=== PATIENT | male | born 1945 | race Caucasian/White ===

== ENCOUNTER → 2017-09-24 | Outpatient (CLI) | payer OTHER ==
[~2017-09-24] MED LIST: ASPIR 8181 MG; ASPIRIN325 PO; ATORVASTATIN CA40 MG PO; BYSTOLIC 5 MG5 M1; COLACE100 MG PO; COUMADIN 5 MG TA5 M1 PO; ENOXAPARIN150 MG/1 M SUBQ; FEVERALL650 MG RECTAL; HYDROCODON-ACE1 EAC7 PO; HYDROCODONE-AP1 EAC6; LIVALO2 MG; MAGNESIUM; METAMUCIL PAC1 UDPKT PO; METFORMIN HCL500 MG; NAPROSYN500 MG PO; OXYCODONE HCL 55 MG PO; PROTONIX 20 MG20 M1 PO; PROTONIX40 M2 PO; TYLENOL325 MG PO; XARELTO10 MG PO
== END ==
LOC: M.CT 08:55
DX: Z13.6 Encounter for screening for cardiovascular disorders (principal)

== ENCOUNTER → 2017-10-13 | Outpatient (CLI) | payer MEDICARE ==
[2017-10-13] VITALS (7 sets, daily range): BP systolic 113–152; BP diastolic 59–75
[~2017-10-13] VITALS: Ht 180.3 cm; Wt 108.9 kg
[2017-10-13 08:32] LABS: CALCIUM 8.8 mg/dL (8.5-10.1); CREATININE 1.2 mg/dL (0.6-1.3); POTASSIUM 4.3 mmol/L (3.5-5.1)
--- NOTE | 2017-10-13 10:29 | EKG ---
[place] [address] ELECTROCARDIOGRAM REPORT Name: EMMANUEL QUINTEROS Room: [facility]#: [id number] Admission: 10/13/17 Attend Phys: Shine Bauer MD, F Discharge: Date of : 49 Report #: [id number] THIS REPORT FOR: //name// [facility] Test Date: 2017-10-13 Test Time: 08:14:15 Pat Name: EMMANUEL QUINTEROS Department: Room: Gender: M Sprigger: [facility] : 1945 Requested By: Shine Bauer Order Number: [id number] Reading MD: Shine Bauer Measurements Intervals [place] Rate: 58 P: 14 CT: 191 QRS: -4 QRSD: 75 T: 4 QT: 420 QTc: 413 Interpretive Statements Sinus rhythm Compared to ECG 02/22/2016 07:54:57 Sinus tachycardia no longer present Electronically Signed On 10-13-2017 10:29:32 MOLD RUNNER by Shine Bauer [email or web address] <ELECTRONICALLY SIGNED> By: Shine Bauer MD, [facility] 10/13/17 1029 0814 3 Shine Bauer MD, FACC /EPI
--- NOTE | 2017-10-13 13:56 | CARD ---
[address] [address] CARDIAC CATH REPORT Name: EMMANUEL QUINTEROS [id number] Admission: 10/13/17 Attend Phys: Shine Bauer MD, F Discharge: Date of : 49 Report #: [id number] THIS REPORT FOR: //name// APPROVED REPORT Patient Details Patient Status: Out-Patient Room #: The patient is a 72 year-old male Event Personnel Shine Bauer Literacy Coordinator, Aura Roman RN RN, Beatriz Jackson RTR Paoloub, Roldan Nicole Monitor Procedures Performed cath Indication Dyspnea Risk Factors Hypercholesterolemia, Coronary Artery Disease Admission/Lab Medications/Medications given during procedure Heparin Unfract. Procedure Narrative The patient was brought electively to the Cardiac Catheterization Laboratory and was prepped and draped in a sterile manner. The right wrist was infiltrated with 1% Lidocaine subcutaneous anesthesia. A 6 fr sheath was inserted into the right radial artery. Coronary angiography was performed using coronary diagnostic catheters. The right coronary system was accessed and visualized with a Diagnostic - JR4 catheter. The left coronary system was accessed and visualized with a Diagnostic - JL4 catheter. The left ventricle was accessed and visualized with a Diagnostic - PIGTAIL catheter. Left ventricular/Aortic Valve gradient assessed via catheter pullback. Left ventriculogram was performed in PEARSON projection. Closure device was deployed with a 6 Fr vascband. The patient tolerated the procedure well and there were no complications associated with the procedure. There was no hematoma. Intraoperative Conscious Sedation Sedation start time: 928 Case end Time: 949 Fentanyl 25.0 mcg Versed [address] [address] CARDIAC CATH REPORT Name: EMMANUEL QUINTEROS Room: [facility]#: [id number] Admission: 10/13/17 Attend Phys: Shine Bauer MD, F Discharge: Date of : 49 Report #: [id number] Fluoro Time: 3.2 minutes Dose: DAP 69896 cGycm2 1094 mGy Contrast Type and Amount: Visipaque 120 ml Coronary Angiography The patient's coronary anatomy is left dominant. [place] Artery Percent Stenosis Left Main: 0 % Prox LAD: 0 % Mid/Distal LAD: 0 % Circumflex: 0 % RCA: 0 % Ramus: %lad was heavily calcified with slow antedgrad flow Left Ventriculography The left ventricle is normal in size with normal contractility. The left ventricular ejection fraction is estimated to be 50-55%. Left ventricular wall motion abnormalities are not present. There is no mitral insufficiency. Hemodynamics The aortic pressure is 85/60 mmHg with a mean of 72 mmHg. The left ventricular pressure is 88/2 mmHg with a mean of mmHg. The left ventricular end diastolic pressure is 10 mmHg. There was no gradient across the aortic valve upon pullback. Pullback from the left ventricle to the aorta revealed no gradient across the aortic valve. Conclusion 1. no obstructive cad noted Recommendations Aggressive Medical Therapy <ELECTRONICALLY SIGNED> By: Shine Bauer MD, [facility] 10/13/17 1356 1356 [id number] Bauer MD, [facility] /INF
== END ==
LOC: M.CL 07:01
PROVIDERS: Internal Medicine Cardiovascular Disease
DX: I25.10 Atherosclerotic heart disease of native coronary artery without angina pectoris (principal); E78.00 Pure hypercholesterolemia, unspecified; K21.9 Gastro-esophageal reflux disease without esophagitis

== ENCOUNTER → 2018-09-29 | Outpatient (CLI) | payer MEDICARE, OTHER | LOC: M.MRI 09-23 13:12 | DX: S46.912A Strain of unspecified muscle, fascia and tendon at shoulder and upper arm level, left arm, initial encounter (principal); M75.102 Unspecified rotator cuff tear or rupture of left shoulder, not specified as traumatic; M25.512 Pain in left shoulder; M25.511 Pain in right shoulder; X58.XXXA Exposure to other specified factors, initial encounter; Y93.89 Activity, other specified; Y92.89 Other specified places as the place of occurrence of the external cause; Y99.8 Other external cause status ==

== ENCOUNTER 2019-09-13 08:08 | Inpatient (IN) | payer MEDICARE, OTHER ==
[2019-09-02 08:52] LABS: ABSOLUTE LYMPHOCYTES 2.4 thou/uL (0.8-5.3); ABSOLUTE MONOCYTES 0.7 thou/uL (0.0-1.2); ABSOLUTE NEUTROPHILS 5.1 thou/uL (1.6-8.1); BASOPHILS 0.6 %; EOSINOPHILS 0.1 %; HEMATOCRIT 49.9 % (42.0-52.0); HEMOGLOBIN 16.9 gm/dL (14.0-18.0); LYMPHOCYTES 29.2 %; MCH 31.8 pg (26.0-34.0); MCHC 33.9 g/dL (28.0-37.0); MCV 93.6 fL (80.0-100.0); MPV 8.1 fl. (7.2-11.1); NUCLEATED RBCS 0 /100WBC; PLATELET COUNT* 268 thou/uL (150-400); POLYS 61.1 %; RBC 5.34 mil/uL (4.50-6.00); RDW-CV 13.2 % (10.5-14.5); WBC 8.4 thou/uL (4.0-11.0)
[2019-09-02 09:03] LABS: APTT 23.2 Seconds (25.0-31.3); PROTIME 10.4 Seconds (9.20-11.50)
[2019-09-02 09:16] LABS: ALBUMIN 3.7 g/dL (3.4-5.0); CALCIUM 8.9 mg/dL (8.5-10.1); CREATININE 1.3 mg/dL (0.6-1.3); POTASSIUM 4.1 mmol/L (3.5-5.1); TOTAL BILIRUBIN 0.5 mg/dL (<0.1-1.0); TOTAL PROTEIN 7.5 g/dL (6.4-8.2)
[2019-09-02 10:17] LABS: ESR (SEDRATE) 3 mm/hr (0-20)
--- NOTE | 2019-09-02 10:30 | EKG ---
[place] [address] ELECTROCARDIOGRAM REPORT Name: EMMANUEL QUINTEROS Room: [facility]#: [id number] Admission: Attend Phys: Casey Norris DO Discharge: Date of : 49 Report #: [id number] THIS REPORT FOR: //name// [facility] Test Date: 2019-09-02 Test Time: 09:03:45 Pat Name: EMMANUEL QUINTEROS Department: Room: Gender: M Bog Cutter: : 1945 Requested By: Casey Norris Order Number: [id number] Reading MD: Shine Bauer Measurements Intervals [place] Rate: 66 P: 13 DE: 160 QRS: 19 QRSD: 89 T: 21 QT: 377 QTc: 395 Interpretive Statements Sinus rhythm Abnormal R-wave progression, early transition Baseline wander in lead(s) III,aVF Compared to ECG 10/13/2017 08:14:15 No significant changes Electronically Signed On 09-02-2019 10:30:10 LOAD OUT SUPERVISOR by Shine Bauer [email or web address] <ELECTRONICALLY SIGNED> By: Shine Bauer MD, [facility] 09/02/19 1030 D: 01902 2 Shine Bauer MD, FACC /EPI
[2019-09-03 02:10] LABS: GLYCOHEMOGLOBIN (HGB A1C) 6.4 % (4.8-5.6)
[~2019-09-13] VITALS: Ht 177.8 cm; Wt 105.7 kg
[~2019-09-13 08:08] MED LIST changes: +ACIPHEX 20 MG T20 MG PO; +MEDROLDOSEPACK PO
[2019-09-13 10:55] VITALS: BP 122/79
[2019-09-13 16:17] VITALS: BP 123/65
[2019-09-13 20:50] VITALS: BP 124/74
[2019-09-14] VITALS: BP 107/70
[2019-09-14 03:54] VITALS: BP 103/66
[2019-09-14 05:45] LABS: HEMATOCRIT 41.8 % (42.0-52.0); HEMOGLOBIN 13.9 gm/dL (14.0-18.0)
--- NOTE | 2019-09-14 07:17 | OP ---
[address] [address] OPERATIVE REPORT Name: EMMANUEL QUINTEROS Room: [address] .R.#: [id number] Admission: 09/13/19 Attend Phys: Dylan Iyer Discharge: Date of : 49 Report #: [id number] THIS REPORT FOR: //name// cc: Brittaney Dhillon Linda J. DO ~ THIS REPORT FOR: //name// CC: Brittaney Marley DICTATED BY: Cisco Tony DO DATE OF SERVICE: 09/13/2019 PREOPERATIVE DIAGNOSIS: Left knee degenerative joint disease. POSTOPERATIVE DIAGNOSIS: Left knee degenerative joint disease. OPERATION PERFORMED: Left total knee arthroplasty. IMPLANTS: Biomet Vanguard total knee system using the following components: A. Size 70-mm femur. B. A 79-mm fixed cruciate tibial plate with a locking bar. C. A 12-mm anterior stabilized polyethylene liner. D. A 34-mm asymmetric patella. E. Two bags of Pal[place]os bone cement. SURGEON: Casey Norris DO ASSISTANTS: CHEPE Capps, Cisco Tony DO and Nick Mena DO ANESTHESIA: General with regional adductor canal nerve block. ESTIMATED BLOOD LOSS: 100 mL. DRAINS: None. SPECIMENS: None. COMPLICATIONS: None apparent. CONDITION OF THE PATIENT: Stable. DISPOSITION: PACU and then to Med/Surg floor. ANTIBIOTICS: 2 g Ancef IV prior to procedure. [facility] [address] [place] [address] OPERATIVE REPORT Name: QUINTEROSEMMANUEL Paula Room: [address] [facility]#: [id number] Admission: 09/13/19 Attend Phys: Dylan Iyer Discharge: Date of : 49 Report #: [id number] TOURNIQUET TIME: 58 minutes at 295 mmHg. INDICATIONS FOR PROCEDURE: The patient is a pleasant 73-year-old male who has a history of bilateral knee degenerative joint disease. Four years ago, he underwent a right total knee arthroplasty with good results. He has been followed in the clinic for his left knee DJD and was undergoing conservative care. Conservative care no longer providing relief. This consisted of anti-inflammatories, activity modifications, attempts at weight loss, and intraarticular steroid injections. He was informed about the risks, benefits, complications, and indications for left total knee arthroplasty including potential complications including but not limited to neurovascular injury, infection, need for revision surgery, intraoperative fracture or periprosthetic fracture after surgery. I have also discussed DVT, PE, complications of anesthesia and other imponderables. He demonstrated good understanding and consent was obtained prior to surgery. OPERATIVE FINDINGS: Upon arthrotomy of the knee, there was noted to be degenerative changes tricompartmentally with softening of the cartilage and focal cartilage loss in some areas. Bone was eburnated as well. DESCRIPTION OF PROCEDURE: The patient was met in the preoperative suite and the left knee was marked. He was then transferred to the operating room and placed supine on a well-padded table. He was given the benefit of general anesthesia and had a regional nerve block prior to procedure. A tourniquet was applied to the left upper thigh. Next, the left lower extremity was sterilely prepped and draped in the standard fashion. At this point, a surgical timeout was performed indicating correct patient, procedure to be performed as well as operative site and administration of antibiotics. All in the room were in agreement and we elected to proceed. The leg was exsanguinated using gravity and then tourniquet was insufflated. The midline incision was made. Sharp dissection was taken down to the level of the capsule. With a new knife, the capsulotomy was performed, the standard medial parapatellar approach. The patella was everted and the knee was brought into flexion. At this point, Hoffa's fat pad and the anterior and lateral menisci were excised. I also excised the ACL and PCL. Next, the intramedullary drill was inserted into distal femur and then this was followed by the distal femur intramedullary guide. A standard resection of a 5-degree valgus cut with 11 mm resection was performed. At this point, the entire attention was turned to the proximal tibia and the extramedullary guide was placed. This was cut 10 mm from the high lateral side. The knee was brought into extension and the 10 mm spacer block was inserted in perpendicular medial and lateral stress. Next, the knee was brought into flexion again and the AP sizer for the distal femur was used. The proper 4-in-1 block was then placed with 3 degrees of external rotation and the anterior and posterior distal femoral cuts as well as the chamfer cuts were performed. At this point, the trial tibia was positioned and it was found to be a size 79. A size 70 [place] [address] OPERATIVE REPORT Name: EMMANUEL QUINTEROS Room: [address] [place] [facility]#: [id number] Admission: 09/13/19 Attend Phys: Dylan Iyer Discharge: Date of : 49 Report #: [id number] trial was positioned. A 10 mm trial spacer was inserted and this was brought into extension showing complete extension of the knee with some mild varus and valgus laxity. At this point, attention was turned to the patella and this was reamed in standard fashion and a trial patellar button was inserted after the 3 peg holes were drilled and it tracked well with range of motion. The patella and distal femur implants were removed and then the proximal tibia was prepped with the reamer and cruciform punch. All implants were removed and the knee was thoroughly irrigated with saline. We then dried the bone ends and proceeded to cement the implants in the standard fashion using first the tibia, followed by the femur and lastly the patella. With the implants cemented in, a 12 mm trial spacer was inserted and the knee was brought into extension with compression allowing the cement to harden. With the cement hardened, the posterior capsule was injected with a cocktail. The tibial tray was irrigated and all cementophytes were removed. The final 12 mm polyethylene spacer was then inserted followed by the locking bar, was clipped into place. A 12 mm poly provided excellent stability to both varus and valgus stress as well as good anterior and posterior drawer at 90 degrees flexion. The wound was once again irrigated and then vancomycin powder was placed in the knee as well as topical tranexamic acid. At this point, the capsule was closed using #1 Vicryl in a [id number] fashion followed by a running #1 Stratafix barbed suture. The subcutaneous tissue was then closed with 2-0 Monocryl in an inverted simple fashion followed by running subcuticular 3-0 Stratafix. Dermabond was then placed. There was good hemostasis after the tourniquet was let down prior to closure and throughout the procedure. Final tourniquet time was 58 minutes. Needle and sponge counts were correct x 2 at the end of the procedure. The patient was awakened from anesthesia and taken to PACU in a stable condition. POSTOPERATIVE COURSE: Anticipate at least 1 midnight stay for antibiotics 2 doses after surgery as well as working with physical therapy for gait training. We will also initiate both chemical and mechanical DVT prophylaxis. ATTESTATION: I attest that Dr. Casey Norris was present throughout all critical aspects of the case. <ELECTRONICALLY SIGNED> By: Zackery Sandy DO 09/14/19 0717 1514 [id number] Adolph Norris DO /nt
[2019-09-14 08:30] VITALS: BP 106/66
[2019-09-14] MEDS ORDERED: PAIN RELIEVER500 MG PO (09:42)
[2019-09-14] MEDS ORDERED: OXYCODONE HCL 55 MG PO (09:42)
[2019-09-14] MEDS ORDERED: COLACE 100 MG100 MG PO (09:42)
[2019-09-14] MEDS ORDERED: ELIQUIS5 MG PO (09:42)
[2019-09-14 13:41] VITALS: BP 106/66
[2019-09-14 14:55] VITALS: BP 106/66
[2019-09-14 16:00] VITALS: BP 114/64
[2019-09-14] MEDS ORDERED: XARELTO10 MG PO (17:28)
== END 2019-09-14 17:50 | disposition home health service (06) | DRG 470 ==
LOC: M.PRE 08:08 → M.TBA 09:40 → M.PRE 10:16 → M.TBA 14:52 → M.ORTHSURG 14:52
PROVIDERS: Orthopaedic Surgery; ADMIT Internal Medicine
PROC: 0SRD0J9 Replacement of Left Knee Joint with Synthetic Substitute, Cemented, Open Approach (ICD-10-PCS; principal; 2019-09-13)
DX: M17.12 Unilateral primary osteoarthritis, left knee (principal); K21.9 Gastro-esophageal reflux disease without esophagitis; Z96.651 Presence of right artificial knee joint; K22.70 Barrett's esophagus without dysplasia; Z79.82 Long term (current) use of aspirin; Z86.718 Personal history of other venous thrombosis and embolism; Z87.81 Personal history of (healed) traumatic fracture; Z79.899 Other long term (current) drug therapy

== ENCOUNTER → 2019-09-20 | Outpatient (CLI) | payer MEDICARE, OTHER ==
[~2019-09-20] MED LIST changes: +COLACE 100 MG100 MG PO; +ELIQUIS5 MG PO; +PAIN RELIEVER500 MG PO
== END ==
LOC: M.ULTRA 11:00
DX: I82.402 Acute embolism and thrombosis of unspecified deep veins of left lower extremity (principal); M79.89 Other specified soft tissue disorders

== ENCOUNTER → 2019-12-29 | Outpatient (CLI) | payer MEDICARE, OTHER | LOC: M.ULTRA 12-28 14:00 | DX: I82.A22 Chronic embolism and thrombosis of left axillary vein (principal) ==

== ENCOUNTER → 2020-05-02 | Outpatient (CLI) | payer MEDICARE, OTHER | LOC: M.ULTRA 10:06 | PROVIDERS: ATTEND Specialist | DX: K43.9 Ventral hernia without obstruction or gangrene (principal) ==

== ENCOUNTER → 2020-05-04 | Outpatient (CLI) | payer MEDICARE, OTHER | LOC: M.MRI 07:59 | PROVIDERS: ATTEND Orthopaedic Surgery | DX: M19.012 Primary osteoarthritis, left shoulder (principal); M75.42 Impingement syndrome of left shoulder; M75.52 Bursitis of left shoulder ==

== ENCOUNTER → 2020-05-11 | Day surgery (SDC) | payer MEDICARE, OTHER ==
[~2020-05-11] MED LIST changes: +ASPIRIN EC81 M1 PO; +ROXICODONE5 M2 PO
--- NOTE | ~2020-05-11 | OP ---
[facility] [address] [place] [address] OPERATIVE REPORT Name: EMMANUEL QUINTEROS Room: [facility]#: [id number] Admission: 05/11/20 Attend Phys: Lenka Hernández DO Discharge: Date of : 49 Report #: [id number] THIS REPORT FOR: //name// cc: Brittaney Dhillon Linda J. DO ~ CC: Lenka King DICTATED BY: Zackery Vizcaino DO DATE OF SERVICE: 05/11/2020 PREOPERATIVE DIAGNOSIS: Umbilical hernia. POSTOPERATIVE DIAGNOSIS: Umbilical hernia. FINDINGS: A 2 x 2 cm fascial defect with incarcerated omentum. SURGEON: Lenka Hernández DO CO-SURGEON: Zackery Vizcaino DO PGY-5 METAL BUGGY OPERATOR: Moy France DO, PGY-1 OPERATION: Umbilical hernia repair with mesh. ANESTHESIA: General and local. ESTIMATED BLOOD LOSS: 5 mL. SPECIMEN: Hernia sac and contents. COMPLICATIONS: None. PATIENT CONDITION: Stable. DISPOSITION: PACU to home. IMPLANT: Ventrio ST 6.4 cm [place] mesh. INDICATIONS: The patient is a 74-year-old male that presented to our clinic with complaints of symptomatic umbilical bulge. On physical exam, he was found to have an umbilical hernia. He was informed of the risks and benefits of umbilical hernia repair with mesh and he consented to proceed with surgery. [facility] [address] OPERATIVE REPORT Name: EMMANUEL QUINTEROS Room: [facility]#: [id number] Admission: 05/11/20 Attend Phys: Lenka Hernández DO Discharge: Date of : 49 Report #: [id number] DESCRIPTION OF PROCEDURE: After informed consent was obtained, the patient was brought to the operating room and placed in supine position. SCDs were on and running. Preoperative antibiotics were given. General anesthesia was administered with an ET tube. The patient was prepped and draped in the usual sterile fashion. A surgical pause was held to confirm proper patient and procedure. Infraumbilical skin was infiltrated with 0.5% Marcaine and elevated with two Adson's and incised with a 15 blade in a curvilinear fashion. Dissection was carried through the subcutaneous fat until the hernia sac was identified. This was encircled bluntly using a Gladis. The umbilical skin was then dissected free from the hernia sac using Metzenbaum scissors. The umbilical hernia sac was then circumferentially dissected free from these fascial edges. The hernia was containing omental fat. This was transected slowly using cautery. It was hemostatic. Once the hernia sac was excised in its entirety, it was handed off as specimen. The fascial edges were further dissected to have healthy tissue to reapproximate. A finger was introduced into the abdomen and the peritoneal surrounding surfaces were palpated. The landing zone for the mesh was adequately dissected free. A small subcutaneous pocket was circumferentially dissected using cautery to allow for suture placement. A 6.[address] mesh was selected and inserted into the abdomen. The straps were elevated at the lateral edges and inverted U stitch was used to fixate the mesh. The defect was closed using inverted O Prolenes in an interrupted fashion. Once the defect was completely closed with incorporation of the mesh into the closure, the wound was inspected for hemostasis. Hemostasis was achieved using cautery. The surrounding fat was closed over top of the fascial closure using 2-0 Vicryl and the umbilicus was reimplanted to the deep tissue using 2-0 Vicryl. The wound was closed in layered fashion using 3-0 Vicryl and 4-0 Monocryl. A 0.5% Marcaine was injected in the fascia, subcutaneous tissue and the dermis. The wound was cleansed and dressed with Dermabond. All counts were correct. The patient was emerged from anesthesia and transferred to PACU in stable condition. By: [id number] Hernández DO /garo
[2020-05-11 07:56] LABS: HEMATOCRIT 44.7 % (42.0-52.0); HEMOGLOBIN 15.2 gm/dL (14.0-18.0); MCH 31.7 pg (26.0-34.0); MCHC 34.1 g/dL (28.0-37.0); MCV 93.2 fL (80.0-100.0); MPV 8.4 fl. (7.2-11.1); RBC 4.8 mil/uL (4.50-6.00); RDW-CV 14.5 % (10.5-14.5); WBC 4.7 thou/uL (4.0-11.0)
[2020-05-11 08:04] LABS: CALCIUM 8.6 mg/dL (8.5-10.1); CREATININE 1.2 mg/dL (0.6-1.3); POTASSIUM 3.7 mmol/L (3.5-5.1)
--- NOTE | 2020-05-11 16:16 | EKG ---
[place] [address] ELECTROCARDIOGRAM REPORT Name: QUINTEROSGARYEMMANUEL Paula Room: [facility]#: [id number] Admission: 05/11/20 Attend Phys: Lenka Hernández, Discharge: Date of : 49 Date of Service: 05/11/20 0747 Report #: [id number] THIS REPORT FOR: //name// [facility] Test Date: 2020-05-11 Test Time: 07:47:48 Pat Name: EMMANUEL QUINTEROS Department: Room: Gender: Last Waxer: : 1945 Requested By: Lenka Hernández Order Number: [id number] Radu MD: Claudy Ross Measurements Intervals [place] Rate: 52 P: -16 AK: 200 QRS: 7 QRSD: 90 T: 11 QT: 449 QTc: 418 Interpretive Statements Sinus rhythm Abnormal R-wave progression, early transition Compared to ECG 09/02/2019 09:03:45 No significant changes Electronically Signed On 05-11-2020 16:16:33 CDT by Claudy Ross [email or web address] <ELECTRONICALLY SIGNED> By: Claudy Ross MD, [facility] 05/11/20 1616 0747 0747 Claudy Ross MD, [facility] /EPI
== END | disposition home or self-care (01) ==
LOC: M.SUR 06:22
PROVIDERS: ATTEND Surgery
DX: K42.0 Umbilical hernia with obstruction, without gangrene (principal); I25.10 Atherosclerotic heart disease of native coronary artery without angina pectoris; K21.9 Gastro-esophageal reflux disease without esophagitis; Z98.890 Other specified postprocedural states; Z79.899 Other long term (current) drug therapy; Z86.711 Personal history of pulmonary embolism; Z79.01 Long term (current) use of anticoagulants; Z88.8 Allergy status to other drugs, medicaments and biological substances